=== PATIENT | male | born 1950 | race Asian ===

== ENCOUNTER 2024-12-26 20:31 | Emergency (ER) | payer OTHER ==
[2024-12-26 20:38] VITALS: BP 165/67; PULSE 58; RESP 21; TEMP 98; BMI 28.1
[2024-12-26] MEDS: SODIUM CHLORIDE 0.9% 500 ML INFUS.BAG IV ONE (21:39)
[2024-12-26 21:45] LABS: ABSOLUTE IMMATURE GRANULOCYTES 0.03 x10^3/uL (0.0-0.031); BASOPHILS # 0.08 x10^3/uL (0.01-0.08); EOSINOPHIL % 3.2 % (0.8-7.0); EOSINOPHILS # 0.22 x10^3/uL (0.04-0.54); MCHC 33.3 g/dl (32.3-36.5); MEAN CELL VOLUME 89.9 fl (79.0-92.2); MEAN PLT VOLUME 8.0 fl (9.4-12.4); MONOCYTE # 0.54 x10^3/uL (0.30-0.82); MONOCYTE % 7.9 % (5.3-12.2); RDW 13.1 % (12.2-16.6)
[2024-12-26 22:58] LABS: CO2 26.0 mmol/L (21-32); GLUCOSE,RANDOM 128.0 mg/dL (74-106)
[2024-12-26 23:01] LABS: CREATININE 1.0 mg/dL (0.55-1.3); SGOT/AST 32.0 U/L (15-37); SGPT/ALT 60.0 U/L (13-61)
[2024-12-26 23:03] LABS: TOT PROT 6.9 g/dl (6.4-8.2)
[2024-12-26 23:04] LABS: ALK PHOS 77.0 U/L (45-117)
[2024-12-26 23:48] LABS: HCV DIAGNOSTIC IN-HOUSE W/RFLX NON-REACTIVE (NONREACTIVE)
[2024-12-26 23:50] LABS: HIV INTERPRETATION NEGATIVE (NEGATIVE)
== END 2024-12-27 00:41 | disposition home or self-care (01) ==
LOC: JER 20:31
DX: R55 Syncope and collapse (principal); R42 Dizziness and giddiness; R51.9 Headache, unspecified; R11.0 Nausea
CPT/HCPCS: 36415; 70450-TC; 80053; 83735; 84484; 85025; 86803; 87389; 93005; 93010; 99285-25